=== PATIENT | male | born 1965 | race Caucasian/White ===

== ENCOUNTER → 2022-09-13 | Outpatient (CLI) | payer OTHER ==
--- NOTE | 2022-09-13 17:45 | US ---
EXAMINATION TYPE: US kidneys/renal and bladder DATE OF EXAM: 09/13/2022 COMPARISON: NONE CLINICAL HISTORY: N18.31 CHRONIC KIDNEY DISEASE, STAGE 3A. CKD 3 EXAM MEASUREMENTS: Right Kidney: 11.1 x 5.5 x 5.0 cm Left Kidney: 11.9 x 6.0 x 5.5 cm Bladder: wnl Bilateral Jets seen: Yes There is no evidence for hydronephrosis at this point in time. No nephrolithiasis is seen. No ej s are identified. The urinary bladder is anechoic. Bilateral ureteral jets are seen. Increased echogenicity to the liver. IMPRESSION: 1. No evidence of obstructive uropathy 2. Hepatocellular disease commonly related to hepatic steatosis.
== END | disposition home or self-care (01) ==
LOC: RADUSWWP 16:17
PROVIDERS: ATTEND Family Medicine
DX: N18.31 Chronic kidney disease, stage 3a (principal); K76.9 Liver disease, unspecified
CPT/HCPCS: 76770